=== PATIENT | female | born 1995 | race African-American/Black ===

== ENCOUNTER 2016-10-18 13:14 | Emergency (ER) | payer BC ==
[~2016-10-18] VITALS: Ht 165.1 cm; Wt 68.8 kg
[2016-10-18 13:18] VITALS: Ht 165.1 cm; Wt 68.8 kg
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
[2016-10-18] MEDS ORDERED: IBUPROFEN 600 MG TAB PO ONE (14:00)
--- NOTE | 2016-10-18 15:25 | RADRPT ---
PROCEDURE: XR Cervical Spine. CLINICAL INDICATION: pain TECHNIQUE: AP, lateral and odontoid views of the cervical spine were performed. The images were re viewed on a PACS workstation. COMPARISON: None. FINDINGS: There is marked reversal of the cervical lordosis. The vertebral body alignment, height and osseous mineralization are normal. The intervertebral disc spaces are well maintained. There are no abnormal calcifications. The prevertebral soft tissues are normal. No radiopaque foreign bodies are identified. There is no acute fracture or subluxation. RPTAT: AA IMPRESSION: Marked reversal of the cervical lordosis. .Esteban Aguirre MD, MD Date Time Electronically viewed and signed by .Esteban Aguirre MD, on 10/18/2016 15:24 .S/
--- NOTE | 2016-10-18 15:26 | RADRPT ---
PROCEDURE: XR thoracic Spine. CLINICAL INDICATION: Back pain TECHNIQUE: AP, lateral views of the thoracic spine were obtained. COMPARISON: No prior studies are available for comparison. FINDINGS: The study is markedly degraded by motion artifact in the frontal view. There is normal vertebral mineralization. There is mild levoscoliosis of the thoracic spine. No acute fracture or subluxation is seen. The disc spaces are normal in appearance. The posterior elements are unremarkable. The soft tissues appear normal. RPTAT: AA IMPRESSION: Markedly degraded AP view. Mild levoscoliosis of the thoracic spine. No gross fracture is noted. .Esteban Aguirre MD, MD Date Time Electronically viewed and signed by .Esteban Aguirre MD, on 10/18/2016 15:26 .S/
[2016-10-18] MEDS ORDERED: IBUP-1542 PO (15:27)
[2016-10-18] MEDS ORDERED: CYCL5TAB PO (15:27)
== END 2016-10-18 15:40 | disposition home or self-care (01) ==
LOC: FTE 13:14
DX: M54.6 Pain in thoracic spine (principal); M54.2 Cervicalgia
CPT/HCPCS: 72040; 72072